=== PATIENT | female | born 2000 | race Caucasian/White ===

== ENCOUNTER 2018-05-24 16:45 | Emergency (ER) | payer BC ==
[2018-05-24 17:16] VITALS: BP 111/51
[2018-05-24] MEDS ORDERED: Ondansetron ODT TAB* 4 MG PO ONE (17:29)
[2018-05-24] MEDS ORDERED: NS 0.9% 1000 ML** 1,000 ML IV ONE (17:29)
--- NOTE | 2018-05-24 17:29 | UC ---
UC General HPI - HPI Summary HPI Summary: pt c/o n/v/d since about 7am. vomited x8 and watery diarrhea x4. exposed to flu. no hx IBD, travel, recent antibiotic use. no fever. + weak and lightheaded. has only been able to take tiny sips of water and managed to no vomit since about 4pm. - History of Current Complaint Chief Complaint: UCGI Stated Complaint: VOMITING Time Seen by Provider: 05/24/18 17:21 Hx Obtained From: Patient Hx Last Menstrual Period: 05/218 Pain Intensity: 0 Associated Signs & Symptoms: Negative: Abdominal Pain, Cough, SOB - Allergy/Home Medications Allergies/Adverse Reactions: Allergies Allergy/AdvReac Type Severity Reaction Status Date / Time No Known Allergies Allergy Verified 05/24/18 17:16 Home Medications: Home Medications Ibuprofen TAB* [Motrin TAB* 400 MG] 400 mg PO Q6H PRN 05/24/18 [History Confirmed 05/24/18] PMH/Surg Hx/FS Hx/Imm Hx Previously Healthy: Yes - Surgical History Surgical History: Yes Surgery Procedure, Year, and Place: wisdom teeth - Family History Known Family History: Positive: Non-Contributory - Social History Occupation: Student Lives: Dormitory/Roommates Alcohol Use: Weekly Substance Use Type: Marijuana Smoking Status (MU): Never Smoked Tobacco - Immunization History Vaccination Up to Date: Yes Review of Systems All Other Systems Reviewed And Are Negative: Yes Constitutional: Positive: Fatigue Skin: Positive: Negative Eyes: Positive: Negative ENT: Positive: Negative Respiratory: Positive: Negative Cardiovascular: Positive: Negative Gastrointestinal: Positive: Vomiting, Diarrhea, Nausea Genitourinary: Positive: Negative Motor: Positive: Negative Neurovascular: Positive: Negative Musculoskeletal: Negative: Myalgia Neurological: Positive: Weakness. Negative: Headache Psychological: Positive: Negative Physical Exam Triage Information Reviewed: Yes Appearance: Ill-Appearing - but non toxic Vital Signs: Initial Vital Signs Temp 98.7 F 05/24/18 17:12 Pulse 112 05/24/18 17:12 Resp 16 05/24/18 17:12 BP 111/51 05/24/18 17:12 Pulse Ox 100 05/24/18 17:12 Eyes: Positive: Conjunctiva Clear ENT: Positive: Pharynx normal, TMs normal. Negative: Nasal congestion, Nasal drainage Neck: Positive: Supple, Nontender, No Lymphadenopathy Respiratory: Positive: Lungs clear, Normal breath sounds, No respiratory distress Cardiovascular: Positive: No Murmur, Tachycardia Abdomen Description: Positive: Nontender, No Organomegaly, Soft. Negative: Distended, Guarding Bowel Sounds: Positive: Present Musculoskeletal: Positive: ROM Intact Neurological: Positive: Alert Psychological: Positive: Age Appropriate Behavior Skin Exam: Normal Diagnostics - Laboratory Diagnostic Studies Completed/Ordered: RAPID FLU=NEGATIVE Re-Evaluation - Re-Evaluation First Eval Re-Evaluation Time: 18:29 Change: Improved - PT STATES STOMACH IS FEELING A LITTLE BETTER. TAKING SIPS OF GINGERALE AND WILL TRY SALTINES. Second Eval Re-Evaluation Time: 18:56 Change: Improved - TAKEING PO FLUIDS PLUS ATE SALTINES WITH NO N/V/D. Course/Dx - Differential Dx - Multi-Symptom Differential Diagnoses: Other - NON TOXIC. NO ACUTE ABDOMEN. TAKING PO FLUIDS/ CRACKERS PRE D/C WITH NO RECURRENT N/V/D. - Diagnoses Provider Diagnosis: Nausea & vomiting, Diarrhea Discharge - Sign-Out/Discharge Documenting (check all that apply): Patient Departure All imaging exams completed and their final reports reviewed: No Studies - Discharge Plan Condition: Stable Disposition: HOME Prescriptions: Ondansetron ODT TAB* [Zofran 4 MG Odt TAB*] 4 mg PO Q6H PRN #1 box PRN Reason: Vomiting Patient Education Materials: Acute Nausea and Vomiting (ED), Acute Diarrhea (ED ) Forms: *School Release Referrals: GARO EVANS [[email or web address], APPLICATION, OTHER] - 2 Days - Billing Disposition and Condition Condition: STABLE Disposition: Home - Attestation Statements Provider Attestation: Per institutional requirements, I have reviewed the chart, however, I was not consulted specifically or made aware of this patient by the midlevel provider. I did not personally evaluate, interact with , or disposition this patient
[2018-05-24 18:32] LABS: Influenza A Molecular NEGATIVE (Negative); Influenza B Molecular NEGATIVE (Negative)
== END 2018-05-24 19:17 | disposition home or self-care (01) ==
LOC: UCCORT 16:45
DX: R11.2 Nausea with vomiting, unspecified (principal); R19.7 Diarrhea, unspecified; R42 Dizziness and giddiness; R53.1 Weakness
CPT/HCPCS: 99202; A9270-GY; G0463